=== PATIENT | female | born 1975 | race African-American/Black ===

== ENCOUNTER 2023-07-24 07:02 | Emergency (ER) | payer MEDICAID, OTHER ==
[~2023-07-24] VITALS: Ht 149.9 cm; Wt 75.0 kg
[2023-07-24 07:54] LABS: Alanine Aminotransferase 14 U/L (7-40); Albumin 4.4 g/dL (3.2-4.8); Alkaline Phosphatase 219 U/L (46-116); Anion Gap 6 (5-15); Aspartate Aminotransferase 17 U/L (13-40); BUN/Creatinine Ratio 8.7 (10.0-20.0); Bilirubin, Total 0.3 mg/dL (0.2-1.0); Blood Urea Nitrogen 9 mg/dL (9-23); Calcium 10.2 mg/dL (8.5-10.1); Carbon Dioxide 31 mmol/L (20-30); Chloride 106 mmol/L (98-107); Glucose 86 mg/dL (74-106); Potassium 4.2 mmol/L (3.5-5.1); Sodium 143 mmol/L (136-145)
[2023-07-24 07:55] LABS: Total Protein 7.4 g/dL (5.7-8.2)
[2023-07-24 08:20] LABS: Basophils # (auto) 0.1 10 ^3/uL (0-0.2); Basophils % (auto) 0.8 % (0.0-2.0); Eosinophils # (auto) 0.2 10 ^3/uL (0-0.8); Eosinophils % (auto) 2.5 % (0.0-7.0); Hemoglobin 13.3 g/dL (12.2-16.2); Lymphocytes # (auto) 1.8 10 ^3/uL (0.4-5.4); Lymphocytes % (auto) 26.7 % (10.0-50.0); Mean Corpuscular Hemoglobin 26.6 pg (28.0-32.0); Mean Corpuscular Volume 85.8 fL (80.0-100.0); Monocytes # (auto) 0.4 10 ^3/uL (0-1.3); Monocytes % (auto) 6.4 % (0.0-12.0); Neutrophils # (auto) 4.3 10 ^3/uL (1.6-8.6); Neutrophils % (auto) 63.6 % (37.0-80.0); Nucleated Red Blood Cells % 0.1 %; Red Blood Cells 5.01 10^6/uL (4.0-5.20); Red Cell Distribution Width 14.8 % (11.8-14.3); White Blood Cell 6.8 10^3/uL (4.4-10.8)
[2023-07-24] MEDS ORDERED: PANT40TA2 PO (08:29)
[2023-07-24] MEDS: LIDOCAINE VISCOUS 2% 15ML UD PO ONE (09:11)
[2023-07-24] MEDS: MAALOX PLUS or MAALOX 30 ML PO ONE (09:11)
[2023-07-24] MEDS: DONNATAL 5ml ORAL Elix (BELLADONNA ALK-PHENOBARB) PO ONE (09:12)
[2023-07-24 09:18] VITALS: BP 125/76; PULSE 84; RESP 19; TEMP 98.4; O2SAT 98
== END 2023-07-24 09:33 | disposition home or self-care (01) ==
LOC: ER 07:02 → EDBD 07:02 → ER 09:33
DX: K29.70 Gastritis, unspecified, without bleeding (principal); Z90.49 Acquired absence of other specified parts of digestive tract; Z90.710 Acquired absence of both cervix and uterus
CPT/HCPCS: 36415; 74176; 80053; 85025

== ENCOUNTER 2023-10-05 08:12 | Emergency (ER) | payer MEDICAID ==
[~2023-10-05] VITALS: Ht 149.9 cm; Wt 75.4 kg
[~2023-10-05 08:12] MED LIST: PANT40TA2 PO
[2023-10-05 08:40] VITALS: BP 119/83; PULSE 94; RESP 12; TEMP 98.6; O2SAT 99
[2023-10-05] MEDS: methylPREDNISolone SOD SUCC 125 MG/2 ML VL IM ONE (08:52)
[2023-10-05] MEDS: EPINEPHrine HCL 1 MG/1 ML AMP SC ONE (08:53)
[2023-10-05] MEDS ORDERED: PRED20TA2 PO (09:05)
[2023-10-05] MEDS ORDERED: HYDR25CA PO (09:05)
== END 2023-10-05 09:27 | disposition home or self-care (01) ==
LOC: EDBD 08:12 → ER 08:12
DX: T78.49XA Other allergy, initial encounter (principal); Z79.899 Other long term (current) drug therapy; X58.XXXA Exposure to other specified factors, initial encounter
CPT/HCPCS: 96372; 99284; J0171; J2930

== ENCOUNTER 2023-10-27 11:42 | Emergency (ER) | payer MEDICAID ==
[~2023-10-27] VITALS: Ht 149.9 cm; Wt 60.0 kg
[~2023-10-27 11:42] MED LIST changes: +HYDR25CA PO; +PRED20TA2 PO
[2023-10-27 11:50] VITALS: TEMP 98.3
[2023-10-27 11:51] VITALS: BP 120/74; PULSE 105; RESP 20; O2SAT 98
[2023-10-27 12:35] LABS: Urine Bacteria None Seen /hpf (None Seen)
[2023-10-27 12:42] LABS: Urine Blood Negative /uL (Negative); Urine Clarity Clear (Clear); Urine Color Colorless (Yellow); Urine Protein, UAD Negative (Negative); Urine Specific Gravity 1.005 (1.001-1.035); Urine Urobilinogen Normal (Negative); Urine WBC 1 /hpf (0 - 5)
[2023-10-27] MEDS ORDERED: FAMO20TA10 PO (14:02)
[2023-10-27] MEDS ORDERED: HYDR-4924 PO (14:02)
[2023-10-27] MEDS ORDERED: PRED20TA2 PO (14:02)
[2023-10-27] MEDS: DexAMETHasone SOD PHOS 10MG/1ML VIAL INJ IM ONE (14:20)
== END 2023-10-27 14:03 | disposition home or self-care (01) ==
LOC: ER 11:42 → EDBD 11:42 → ER 14:03
DX: T78.40XA Allergy, unspecified, initial encounter (principal); L30.9 Dermatitis, unspecified; X58.XXXA Exposure to other specified factors, initial encounter
CPT/HCPCS: 81001; 96372; 99283; J1100

== ENCOUNTER 2024-11-11 21:42 | Emergency (ER) | payer MEDICAID ==
[~2024-11-11] VITALS: Ht 149.9 cm; Wt 70.0 kg
[~2024-11-11 21:42] MED LIST changes: +FAMO20TA10 PO; +HYDR-4924 PO
[2024-11-11 23:40] VITALS: BP 115/74; PULSE 94; RESP 16; TEMP 98.4; O2SAT 97
--- NOTE | 2024-11-12 00:14 | ED.PDOC ---
GI ASSESSMENT HPI Comments 49-year-old female presents to ER with complaints of nausea/vomiting x2 hours. Patient reports that she started experiencing 2 episodes of nausea/vomiting and 6/10 diffuse lower abdominal cramping 2 hours prior to arrival to ER that she states started 30 minutes after she had eaten a "burger" firm [employer]. She states that her symptoms have since fully subsided, denying any current symptoms. Patient presents to ER ambulatory on arrival, with steady gait, in no distress with vitals stable. Denies fever, body aches, chills, chest pain, changes in urination/BM or any further symptoms/complaints Chief Complaint: Nausea/Vomiting Time Seen by MD: 22:20 Primary Care Provider: UNKNOWN Reviewed Notes: Nurses Notes, Medications, Allergies Allergies: Coded Allergies: NO KNOWN ALLERGIES (Unverified , 10/05/23) Home Meds Active Scripts Famotidine (PEPCID TABLET) 20 Mg Tb, 20 MG PO BID PRN, #20 TAB Prov:CARLYN LILLY 10/27/23 Prednisone (Prednisone) 20 Mg Tab, 60 MG PO DAILY for 5 Days, #15 TAB Prov:CARLYN LILLY 10/27/23 Hydroxyzine HCl (Hydroxyzine Hydrochloride) 25 Mg Tab, 25 MG PO Q6HPRN PRN, #30 TAB Prov:CARLYN LILLY 10/27/23 Prednisone (Prednisone) 20 Mg Tab, 60 MG PO DAILY, #21 TAB Prov:EVIE HUYNH 10/05/23 Hydroxyzine Pamoate (Vistaril) 25 Mg Cap, 1 CAP PO TID, #30 CAP Prov:EVIE HUYNH 10/05/23 Pantoprazole Sodium Sesquihydr (Protonix) 40 Mg Tab, 40 MG PO DAILY for 7 Days, #7 TAB Prov:GRACE TALLEY MD 07/24/23 Information Source: Patient Mode of Arrival: Ambulatory Past Medical History PAST MEDICAL HISTORY: Depression, DM Surgical History: Cholecystectomy, Hernia Repair, Hysterectomy DONOR RELATIONS COORDINATOR History: Denies all DONOR RELATIONS COORDINATOR Hx Family History Family History: Unknown Social History Smoker: Non-Smoker Alcohol: Denies ETOH Use Drugs: Denies Drug Use Lives In: Home Constitutional: denies: chills, diaphoresis, fatigue, fever, malaise, sweats, weakness, others EENTM: denies: blurred vision, double vision, ear bleeding, ear discharge, ear drainage, ear pain, ear ringing, eye pain, eye redness, hearing loss, mouth pain, mouth swelling, nasal discharge, nose bleeding, nose congestion, nose pain, photophobia, tearing, throat pain, throat swelling, voice changes, others Respiratory: denies: cough, hemoptysis, orthopnea, SOB at rest, shortness of breath, SOB with excertion, stridor, wheezing, others Cardiovascular: denies: chest pain, dizzy spells, diaphoresis, Dyspnea on exertion, edema, irregular heart beat, left arm pain, lightheadedness, palpitations, PND, syncope, others Gastrointestinal: reports: others (As stated in HPI) Genitourinary: denies: abnormal vagina bleeding, burning, dyspareunia, dysuria, flank pain, frequency, hematuria, incontinence, pain, , vagina discharge, urgency, others Neurological: denies: dizziness, fainting, headache, left sided numbness, left sided weakness, numbness, paresthesia, pre-existing deficit, right sided numbness, right sided weakness, seizure, speech problems, tingling, tremors, weakness, others Musculoskeletal: denies: back pain, gout, joint pain, joint swelling, muscle pain, muscle stiffness, neck pain, others Integumetry: denies: bruises, change in color, change in hair/nails, dryness, laceration, lesions, lumps, rash, wounds, others Allergic/Immunocompromised: denies: Difficulty Healing, Frequent Infections, Hives, Itching, others Hematologic/Lymphatic: denies: anemia, blood clots, easy bleeding, easy bruising, swollen glands, others Endocrine: denies: excessive hunger, excessive sweating, excessive thirst, excessive urination, flushing, intolerance to cold, intolerance to heat, unexplained weight gain, unexplained weight loss, others Psychiatric: denies: anxiety, bipolar disorder, depression, hopeless, panic disorder, schizophrenia, sleepless, suicidal, others Physical Exam General Appearance: No Apparent Distress HEENT: Normal ENT Inspection, PERRL/EOMI, Pharynx Normal, TMs Normal Neck: Full Range of Motion, Non-Tender, Normal Respiratory: Chest Non-Tender, Lungs Clear, No Accessory Muscle Use, No Respiratory Distress, Normal Breath Sounds Cardiovascular: No Murmur, No Gallop, Regular Rate/Rhythm Breast Exam: Deferred Gastrointestinal: No Organomegaly, Non Tender, No Pulsatile Mass, Normal Bowel Sounds, Soft Genitalia: Deferred Pelvic: Deferred Rectal: Deferred Extremities: Normal capillary refill, Normal range of motion Neurologic: Alert, No Motor Deficits, Normal Affect, Normal Mood, No Sensory Deficits Cerebellar Function: Normal Reflexes: Normal Skin: Dry, Normal Color, Warm Peripheral Pulses: 2+ Radial (R), 2+ Radial (L), 2+ Brachial (R), 2+ Brachial (L) Lymphatic: No Adenopathy Was a procedure done? Was a procedure done?: No Sedation Sedation?: No GI differential Dx Differential Diagnosis: Appendicitis, GI hemorrhage, Ischemic Bowel, UTI, D ehydration X-Ray, Labs, Meds, VS Vital Signs Date Time Temp Pulse Resp B/P (MAP) Pulse Ox O2 Delivery O2 Flow Rate FiO2 11/11/24 23:40 97 Room Air* 0 21 11/11/24 23:40 98.4 94 16 115/74 (88) 97 98.4 11/11/24 22:09 98.4 94 16 115/74 (88) 97 98.4 Patient tolerating p.o. intake well and asymptomatic prior to discharge Diet education discussed Advised to follow up with PCP in 1-2 days Patient verbalized understanding and agreeable with current plan of care Advised to return to ER immediately if symptoms worsen Time of 1ST Reevaluation: 23:50 Reevaluation 1ST: N/A Patient Education/Counseling: Diagnosis, Treatment, Prognosis, Need For Follow Up Family Education/Counseling: No Family Present Departure 1 Departure Time of Disposition: 00:12 Impression: Primary Impression: Gastroenteritis Disposition: 01 HOME / SELF CARE / HOMELESS Condition: Stable Discharged With: Self Critical Care Note Critical Care Time?: No Stability Stability form required: No Heart Score Heart Score: Heart Score Response (Comments) Value History N/A 0 EKG N/A 0 Age N/A 0 Risk Factors N/A 0 Troponin N/A 0 Total 0 MALKA REAGAN November 12, 2024 00:14
== END 2024-11-12 00:19 | disposition home or self-care (01) ==
LOC: ER 21:42
DX: K52.9 Noninfective gastroenteritis and colitis, unspecified (principal); E11.9 Type 2 diabetes mellitus without complications; Z98.890 Other specified postprocedural states; Z90.710 Acquired absence of both cervix and uterus; Z90.49 Acquired absence of other specified parts of digestive tract; Z79.899 Other long term (current) drug therapy